=== PATIENT | female | born 1955 | race Caucasian/White ===

== ENCOUNTER 2024-04-18 09:19 | Outpatient (AMB) | payer MEDICARE, BC, SELFPAY ==
--- NOTE | 2024-04-18 09:26 | A.OFFPC_ITS ---
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 Allergies omeprazole Adverse Reaction (Mild, Verified 04/18/24 09:31) IBS Tobacco use date assessed: 04/18/24 Fall risk assessment: No Falls in past year Last assessed Fall Risk: 04/18/24 Dental Screening Dental Screen Date: 04/18/24 Did you have a dental visit in the last 12 months?: Yes Did you have a dental problem in the last 6 months where you did not have access to dental care?: No Was dental information given to patient?: Patient has dentist HPI HPI Comments History of Present Illness Details This is a 68-year-old female with a past medical history of hypertension, hypercholesterolemia, obesity, prediabetes, GERD and vitamin-D deficiency presenting to transfer from my practice at [facility]. Her son is getting in [place] this fall. Her other son was last year in [facility]. Hypertension is treated with 10 mg of lisinopril daily. She is a nonsmoker. Hypercholesterolemia is treated with 20 mg of simvastatin. She is due for labs. She takes 2000 IU of vitamin D3 daily for vitamin D3 deficiency. She was considering taking Prevagen for memory support. I told her to stop her daily vitamin-D 3 supplement if she wants to take Prevagen because it contains the same amount. We have discussed fecal urgency and loose stools. Symptoms are sporadic. She could eat something 1 day and feel fine, and the next day she might eat the same thing and have symptoms. She takes Imodium as needed which helps. Her last colonoscopy was with Dr. oSl in June of 2015, and she was advised to repeat it in 10 years. Denies abdominal pain, unexplained weight loss, fatigue, night sweats, blood or mucus in stools. Mammogram UTD 07/27/23. Last medical wellness visit was 10/26/2023. She goes to [facility] for skin exams. She was treated at a walk-in last week for a UTI. She took 7 days of Macrobid. Her symptoms resolved. ROS: Constitutional: No unexplained weight loss, fever, chills, fatigue or night sweats. Respiratory: No shortness of breath Cardiovascular: No chest pain Musculoskeletal: No muscle pain, back pain, joint pain or swelling. Hematologic/Lymphatics: No bleeding or bruising. No painful lymph nodes. Endocrine: No cold or heat intolerance. No polyuria or polydipsia. Psychiatric: No SI/HI. Physical exam: Constitutional: Alert, in no distress. Neck: Supple, Full range of motion. No lymphadenopathy. Respiratory: Clear to auscultation. Cardiovascular: S1 S2 regular. No murmurs. Gastrointestinal: Abdomen soft, non-tender, non-distended. Normal bowel sounds. No palpable masses. Neurologic: No focal neurological deficits. Skin: No rashes Extremities: Warm and well perfused. No clubbing, cyanosis or edema. Psychiatric: Normal mood and affect [facility] Medical History (Updated 04/18/24 @ 12:20 by LIONEL Moeller) Tear of medial meniscus of knee Synovial cyst of left popliteal space Prolonged QT interval Obesity (BMI 30-39.9) Lumbosacral spondylosis History of herpes zoster Fecal urgency GERD (gastroesophageal reflux disease) Fracture of tibial plateau Atrophic vaginitis Anxiety Essential hypertension Vitamin D deficiency Pure hypercholesterolemia Prediabetes Cataracts, bilateral GERD (gastroesophageal reflux disease) High cholesterol Surgical History (Updated 04/18/24 @ 12:20 by LIONEL Moeller) History of cardiac catheterization Hx of cataract surgery H/O blepharoplasty History of History of bilateral breast reduction surgery History of abdominoplasty History of appendectomy History of right knee joint replacement Family History (Updated 04/18/24 @ 12:21 by LIONEL Moeller) Father Memory loss Mother Diabetes Memory loss High blood pressure High cholesterol Brother Substance abuse in family Hx of CABG High blood pressure High cholesterol Social History (Updated 04/18/24 @ 09:44 by Deysi Lopez CMA) Household Members: Spouse Housing: House Are you a primary career development coordinator to a significant other at home: No Do you presently have visiting nurse or other home services: No 75 years or older and lives alone: No Alcohol intake: current Alcohol intake frequency: holidays/special occasions only Alcohol type: wine and other Patient Tobacco Use Status: Former Tobacco user e-Cigarette/Vaping Use: Never Used Agree to transfusion: Yes service: No Current occupational status: retired Cognitive needs: No Hearing needs: Yes (hearing aids) Vision needs: Yes (Patient wears reading glasses.) Questionnaire PHQ-9 Over the last 2 weeks, how often have you been bothered by any of the following problems? 1. Little interest or pleasure in doing things: not at all 2. Feeling down, depressed, or hopeless: not at all 3. Trouble falling or staying asleep, or sleeping too much: not at all 4. Feeling tired or having little energy: not at all 5. Poor appetite or overeating: not at all 6. Feeling bad about yourself - or that you are a failure or have let yourself or your family down: not at all 7. Trouble concentrating on things, such as reading the newspaper or watching television: not at all 8. Moving or speaking so slowly that other people could have noticed. Or the opposite - being so fidgety or restless that you have been moving around a lot more than usual: not at all 9. Thoughts that you would be better off or of hurting yourself in some way: not at all Total score: 0 Depression Screening Interpretation: Negative Depression Screening Done: Yes Source: Developed by Drs. Dru Nunn, Iris Cote, Josh Black and colleagues, with an educational terry from [employer]. Thrive Questionnaire Date Thrive assessed: 04/18/24 I am a: Patient What is your living situation today?: I have a steady place to live Within the past 12 months, did the food you bought not last and you didn't have the money to get more?: Never true Within the past 12 months, did you worry whether your food would run out before you got money to buy more?: Never true Do you have trouble paying for medicines?: No Do you have trouble getting transportation to medical appointments?: No Do you have trouble paying your heating and electricity bill?: No Do you have trouble taking care of your child, family member or friend?: No Do you have trouble with day-to-day activities such as bathing, preparing meals, shopping, managing finances, etc.?: No Are you currently unemployed and looking for a job?: No Are you interested in more education?: No THRIVE Score: 0 AUDIT C Alcohol Use Questionnaire (AUDIT-C) 1. How often do you have a drink containing alcohol?: Monthly or less 2. How many drinks containing alcohol do you have on a typical day when you are drinking?: 1 or 2 3. How often do you have six or more drinks on one occasion?: Never Total Score: 1 SUDHIR-7 AMB Questionnaire SUDHIR-7 Date SUDHIR - 7 assessed: 04/18/24 Feeling nervous, anxious, or on edge: 0 = Not at all Not being able to stop or control worryin = Not at all Worrying too much about different things: 0 = Not at all Trouble relaxin = Not at all Being so restless that it is hard to sit still: 0 = Not at all Becoming easily annoyed or irritable: 0 = Not at all Feeling afraid as if something awful might happen: 0 = Not at all Total SUDHIR-7 score (0-4 normal; 5-9 mild; 10-14 moderate; 15-21 severe): 0 Source: Developed by Drs. Dru Nunn, Iris Cote, Josh Black and colleagues, with an educational terry from [employer]. Physical exam (Primary Care) Vital Signs: Last Vital Signs Pulse 71 04/18/24 09:28 BP 122/78 04/18/24 09:28 Pulse Ox 96 04/18/24 09:28 Oxygen Delivery Method Room Air 04/18/24 09:28 BMI result Body Mass Index 33.0 Tobacco/Smoking Status: Tobacco use Status Tobacco use date assessed 04/18/24 04/18/24 09:50 Patient Tobacco Use Status Former Tobacco user 04/18/24 09:50 e-Cigarette/Vaping Use Never Used 04/18/24 09:50 PHQ-9: PHQ-9 Score PHQ-9: Total score 0 04/18/24 11:48 Depression Screening Interpretation: Negative Thrive Assessment: Date of Thrive Assessment Date Thrive assessed 04/18/24 04/18/24 09:50 Assessment and Plan Assessment & Plan (1) Pure hypercholesterolemia: Code(s): E78.00 - Pure hypercholesterolemia, unspecified Plan: Recommended the Mediterranean diet and exercise to promote weight loss. Continue simvastatin. Check lipid profile. (2) Vitamin D deficiency: Code(s): E55.9 - Vitamin D deficiency, unspecified Plan: See discussion in HPI regarding supplements. Bone density ordered. Check vitamin-D level. (3) Essential hypertension: Code(s): I10 - Essential (primary) hypertension Plan: Controlled. Continue lisinopril. (4) Fecal urgency: Code(s): R15.2 - Fecal urgency Plan: Patient's description sounds more consistent with IBS than inflammatory bowel disease, food allergy or malignancy. No constitutional symptoms. This has been going on for several years. Recommended trial of low FODMAP diet. She can continue Imodium as needed. Referred to Dr. Sol. (5) Loose stools: Code(s): R19.5 - Other fecal abnormalities Plan Medical wellness visit scheduled for 11/03/2023. Orders: Orders Lipid Panel Today E55.9 - Vitamin D deficiency, unspecified, E78.00 - Pure hypercholesterolemia, unspecified, I10 - Essential (primary) hypertension, R73.03 - Prediabetes Hemoglobin A1c Today E55.9 - Vitamin D deficiency, unspecified, E78.00 - Pure hypercholesterolemia, unspecified, I10 - Essential (primary) hypertension, R73.03 - Prediabetes XR DEXA axial skeleton Today N95.1 - Menopausal and female climacteric states Comprehensive Met. Panel Today E55.9 - Vitamin D deficiency, unspecified, E78.00 - Pure hypercholesterolemia, unspecified, I10 - Essential (primary) hypertension, R73.03 - Prediabetes Vitamin D 1,25 dihydroxy Today E55.9 - Vitamin D deficiency, unspecified, E78.00 - Pure hypercholesterolemia, unspecified, I10 - Essential (primary) hypertension, R73.03 - Prediabetes Referrals Gastroenterology Referral R19.5 - Other fecal abnormalities Coding Level of Care Code Est Pt Level 5 (51069) Complex EM visit Add On G2211 Diagnoses Pure hypercholesterolemia E78.00 Vitamin D deficiency E55.9 Essential hypertension I10 Fecal urgency R15.2 Loose stools R19.5 Time Spent (min) 45 Comment Updating the chart, evaluating patient, reviewing treatment plan
[2024-04-18 09:28] VITALS: BP 122/78; PULSE 71; O2SAT 96; BMI 33.0
== END 2024-04-18 10:29 | disposition home or self-care (01) ==
PROVIDERS: PCP Physician Assistant Medical; Visit Provider Physician Assistant Medical
DX: E78.00 Pure hypercholesterolemia, unspecified (principal); E55.9 Vitamin D deficiency, unspecified; I10 Essential (primary) hypertension; R15.2 Fecal urgency; R19.5 Other fecal abnormalities
CPT/HCPCS: 99215; G2211

== ENCOUNTER 2024-04-28 08:12 | Outpatient (REF) | payer MEDICARE, BC, SELFPAY ==
[2024-04-28 11:46] LABS: Estimated Average Glucose 114 mg/dL; Hemoglobin A1c % 5.6 % (<6.0)
[2024-04-28 12:10] LABS: Alanine Aminotransferase 11 U/L (0-31); Albumin Level 4.1 g/dL (3.5-5.0); Alkaline Phosphatase 65 U/L (39-117); Anion Gap 14 (12-20); Aspartate Amino Transferase 16 U/L (5-31); Bilirubin Total 0.5 mg/dL (0.0-1.0); Blood Urea Nitrogen 18 mg/dL (9-16); Calcium 9.2 mg/dL (8.4-10.2); Carbon Dioxide 25 mmol/L (22-29); Chloride 107 mmol/L (96-108); Cholesterol 168 mg/dL (<200); Estimated Glomerular Filt Rate > 60; Glucose Random 98 mg/dL (60-115); HDL Cholesterol 42 mg/dL (>40); LDL Cholesterol Calculated 91 mg/dL (<100); Potassium 4.4 mmol/L (3.3-5.1); Sodium 142 mmol/L (135-145); Total Protein 6.8 g/dL (6.5-8.0); Triglycerides 178 mg/dL (<150)
[2024-05-04 17:18] LABS: VITAMIN D (1,25 OH) D3 19 pg/mL; Vit D (1,25-Dihydroxy) Total 19 pg/mL (18-72); Vitamin D (1,25 OH) D2 <8 pg/mL
== END 2024-04-28 08:13 | disposition home or self-care (01) ==
LOC: HO.WFDLDS 08:12
PROVIDERS: Visit Provider Physician Assistant Medical
DX: R73.03 Prediabetes (principal); E78.00 Pure hypercholesterolemia, unspecified; E55.9 Vitamin D deficiency, unspecified; I10 Essential (primary) hypertension
CPT/HCPCS: 36415; 80053; 80061; 82652; 83036

== ENCOUNTER 2024-06-09 13:34 | Outpatient (REF) | payer MEDICARE, BC, SELFPAY ==
--- NOTE | ~2024-06-09 | MM_ITS ---
EXAMINATION: BONE DENSITOMETRY CLINICAL INDICATION: Menopause. COMPARISON: This is the patient's baseline examination. TECHNIQUE: Using a MemberPass DXA System (software version: 13.1) manufactured by [employer], dual-energy x-ray absorptiometry was performed of the lumbar spine and left hip. The images are of good technical quality. Summary results are attached. FINDINGS: LEFT FEMUR, NECK: BMD 1.004 g/cm2, Z-score 0.9, T-score -0.2, normal. LEFT FEMUR, TOTAL: BMD 0.939 g/cm2, Z-score 0.3, T-score -0.5, normal. AP SPINE L1-L4: BMD 1.412 g/cm2, Z-score 2.9, T-score 1.9, normal. IDENTIFIED RISK FACTORS: Menopause, height loss. HISTORY OF FRACTURE: None listed. MEDICATIONS: Vitamin D. MM/XR DEXA axial skeleton IMPRESSION: 1. DIAGNOSIS: Normal bone density based on the lowest T-score value of -0.5 in the total femur applying World Health Organization criteria. 2. 10-YEAR FRACTURE RISK PREDICTION, FRAX: According to the guidelines, FRAX calculation should only be performed on patients in the osteopenia bone density category. Therefore, FRAX was not performed on this patient. 3. Treatment Recommendations: NOF guidelines recommend consideration for treatment in postmenopausal women and men age 50 and older presenting with the following: -A hip or vertebral (clinical or morphometric) fracture. -T-score less than or equal to -2.5 at the femoral neck or spine after appropriate evaluation to exclude secondary causes. -Low bone mass at the hip or spine and a 10-year fracture probability by FRAX of greater than or equal to 3% for hip fracture or greater than or equal to 20% for major osteoporotic fracture based on the [place] adapted WHO algorithm. 4. Other Recommendations: All treatment decisions require clinical judgment and consideration of individual patient factors, including patient preferences, comorbidities, previous drug use, risk factors not captured in the FRAX model (e.g. frailty, falls, vitamin D deficiency, increased bone turnover, interval significant decline in bone density) and possible under or overestimation of fracture risk by FRAX. FUTURE SCAN RECOMMENDATION: People with diagnosed cases of osteoporosis or at high risk for fracture should have regular bone mineral density tests. For patients eligible for Medicare, routine testing is allowed once every 2 years. The testing frequency can be increased to one year for patients who have rapidly progressing disease, those who are receiving or discontinuing medical therapy to restore bone mass, or have additional risk factors. Electronically signed by: Hi Caraballo MD 06/15/2024 01:07 PM RUDYT
== END 2024-06-09 13:35 | disposition home or self-care (01) ==
LOC: HO.MAMMO 13:34
PROVIDERS: PCP Physician Assistant Medical; Visit Provider Physician Assistant Medical
DX: Z13.820 Encounter for screening for osteoporosis (principal); Z78.0 Asymptomatic menopausal state
CPT/HCPCS: 77080

== ENCOUNTER → 2024-11-03 08:26 | Outpatient (BNVA) | payer MEDICARE, BC, SELFPAY | PROVIDERS: PCP Physician Assistant Medical; Visit Provider Physician Assistant Medical | DX: I10 Essential (primary) hypertension (principal); E78.00 Pure hypercholesterolemia, unspecified; E66.9 Obesity, unspecified; R73.03 Prediabetes; K21.9 Gastro-esophageal reflux disease without esophagitis; E55.9 Vitamin D deficiency, unspecified; Z68.34 Body mass index [BMI] 34.0-34.9, adult | CPT/HCPCS: 96127; 99212 ==

== ENCOUNTER 2024-11-15 07:35 | Outpatient (REF) | payer MEDICARE, BC, SELFPAY ==
[2024-11-15 11:04] LABS: Appearance Urine Clear; Color Urine Yellow; Glucose Urine UA Negative (Negative); Leukocyte Esterase Urine Trace (Negative); Nitrite Urine Negative (Negative); UMIC TRIGGER UA YES; Urine Blood Negative (Negative); Urine Ketones Negative (Negative); Urine Protein Negative (Neg-Trace)
[2024-11-15 11:06] LABS: MANUAL DIFF FLAG NO
[2024-11-15 11:10] LABS: Bacteria Urine 1+ (None Seen); Hyaline Casts Urine 0-2 /LPF (0-2); RBC Urine 0-2 /HPF (0-2); WBC Urine 0-5 /HPF (0-5)
[2024-11-15 11:13] LABS: Basophils Absolute Auto 0.1 X10*3/uL (0.0-0.2); Basophils Percent Auto 0.9 % (0-2); Eosinophils Absolute Auto 0.2 X10*3/uL (0.0-0.4); Eosinophils Percent Auto 2.8 % (0-4); Hematocrit 38.7 % (37.0-47.0); Hemoglobin 12.7 g/dl (12.0-16.0); Imm Gran Abs Auto 0.03 X10*3/uL (0.00-0.03); Imm Gran Pct Auto 0.4 % (0.0-0.4); Lymphocytes Absolute Auto 1.8 X10*3/uL (1.2-4.9); Lymphocytes Percent Auto 26.7 % (20-40); Mean Corpuscular HGB Conc 32.8 g/dl (31.0-35.0); Mean Corpuscular Hemoglobin 29.3 pg (27.0-33.0); Mean Corpuscular Volume 89.4 fL (80.0-98.0); Monocytes Absolute Auto 0.7 X10*3/uL (0.1-1.2); Neutrophils Percent Auto 59.2 % (45-73); Platelet Count 256 X10*3/uL (160-400); Red Blood Count 4.33 X10*6/uL (4.20-5.50); White Blood Count 6.7 X10*3/uL (4.8-10.8)
[2024-11-15 11:33] LABS: Estimated Average Glucose 117 mg/dL; Hemoglobin A1C 125.1204 umol/L; Hemoglobin A1c % 5.7 % (<6.0); Total Hemoglobin (HGBA1C) 3192.4019 umol/L
[2024-11-15 11:42] LABS: Alanine Aminotransferase 17 U/L (0-31); Alkaline Phosphatase 70 U/L (39-117); Anion Gap 10 (12-20); Aspartate Amino Transferase 24 U/L (5-31); Bilirubin Total 0.4 mg/dL (0.0-1.0); Blood Urea Nitrogen 24 mg/dL (9-16); Calcium 9.2 mg/dL (8.4-10.2); Carbon Dioxide 26 mmol/L (22-29); Chloride 110 mmol/L (96-108); Cholesterol 167 mg/dL (<200); Estimated Glomerular Filt Rate > 60; Glucose Random 103 mg/dL (60-115); HDL Cholesterol 44 mg/dL (>40); LDL Cholesterol Calculated 100 mg/dL (<100); Potassium 4.6 mmol/L (3.3-5.1); Sodium 141 mmol/L (135-145); TSH reflex Free T4 3.27 uIU/mL (0.32-4.0); Total Protein 6.9 g/dL (6.5-8.0); Triglycerides 116 mg/dL (<150)
[2024-11-19 17:19] LABS: Vitamin D 25-OH, D2 <4 ng/mL; Vitamin D 25-OH, D3 49 ng/mL; Vitamin D 25-OH, Total 49 ng/mL (30-100)
== END 2024-11-15 07:36 | disposition home or self-care (01) ==
LOC: HO.WFDLDS 07:35
PROVIDERS: Visit Provider Physician Assistant Medical
DX: E11.9 Type 2 diabetes mellitus without complications (principal); R39.9 Unspecified symptoms and signs involving the genitourinary system; M85.80 Other specified disorders of bone density and structure, unspecified site; E78.00 Pure hypercholesterolemia, unspecified; I10 Essential (primary) hypertension; E55.9 Vitamin D deficiency, unspecified
CPT/HCPCS: 36415; 80053; 80061; 81001; 82306; 83036; 84443; 85025; 87086; 87088; 87186

== ENCOUNTER 2025-01-18 11:12 | Outpatient (AMB) | payer MEDICARE, BC, SELFPAY ==
--- NOTE | 2025-01-18 11:16 | AM.OFFWIN_ITS ---
Intake Vital Signs 01/18/25 11:21 Height 5 ft 4 in BMI Reason not done Patient refused/unable BP 124/70 Blood Pressure Location Rt brachial Position Sitting Respiration 13 Pulse 65 Pulse Source Pulse Oximeter Temp 97.8 F Temp Source Oral Pulse Oximetry (%) 96 Oxygen Delivery Method Room Air Intake Visit Reasons: uti Intake Note: Patient c/o itching and frequent urination Patient Tobacco Use Status: Former Tobacco user Allergies omeprazole Adverse Reaction (Mild, Verified 01/18/25 11:37) IBS Medication List - Last Reconciled 01/18/25 by Penny Khan, [facility]- cholecalciferol (vitamin D3) 50 mcg PO DAILY estradiol (Yuvafem) mcg vaginal lisinopril 10 mg PO DAILY nitrofurantoin macrocrystal 100 mg PO Q12H 7 days pantoprazole 20 mg PO DAILY semaglutide (Ozempic) 0.25 mg (0.368 mL) subcut QWEEK simvastatin 20 mg PO BEDTIME Do you need a note to return to daycare/school/sports/work: No HPI HPI Comments History of Present Illness Details 69 y/o F here today I think i have a UT I Sx started this morning Sx: urgency, itchy, pressure HX of post-coital UTI This is not the case @ the time Last UTI 11/17/24, see below, was on Nitrofurantoin Occassional urinary incont; wears pads Takes Cranberry tabs Denies fever, chills, vaginal discharge, abd pain, back pain. Exam awake alert NAD MMM RRR Abd soft nontender No CVAT Plan UA see below Urine to be sent for culture Self obtained BV swab to r/o yeast given itching and recent ABT Pt will be sent results on the portal and tx rendered once results are back Increase h20, start D-Mannose. RTO edu provided. Total time spent caring for the patient today was 30 minutes. This includes time spent before the visit reviewing the chart, time spent during the visit, and time spent after the visit on documentation, reviewing laboratory results, diagnostic imaging, medications, performing a medically necessary evaluation, counseling on diagnoses, care coordination, ordering appropriate tests, ordering appropriate medications, review of tests performed by other providers, reporting test results with the patient, communication with other healthcare providers. [facility] Medical History (Updated 01/18/25 @ 11:55 by Penny Kahn, [facility]) Anxiety Atrophic vaginitis Cataracts, bilateral Essential hypertension Fecal urgency Fracture of tibial plateau GERD (gastroesophageal reflux disease) GERD (gastroesophageal reflux disease) High cholesterol History of herpes zoster Lumbosacral spondylosis Obesity (BMI 30-39.9) Prediabetes Prolonged QT interval Pure hypercholesterolemia Synovial cyst of left popliteal space Tear of medial meniscus of knee Vitamin D deficiency Surgical History (Updated 04/18/24 @ 12:20 by LIONEL Moeller) H/O blepharoplasty History of abdominoplasty History of appendectomy History of bilateral breast reduction surgery History of History of cardiac catheterization History of right knee joint replacement Hx of cataract surgery Family History (Updated 04/18/24 @ 12:21 by LIONEL Moeller) Father Memory loss Mother Diabetes Memory loss High blood pressure High cholesterol Brother Substance abuse in family Hx of CABG High blood pressure High cholesterol Social History (Updated 04/18/24 @ 09:44 by Deysi Lopez [facility]) Household Members: Spouse Housing: House Are you a primary childcare aide to a significant other at home: No Do you presently have visiting nurse or other home services: No 75 years or older and lives alone: No Alcohol intake: current Alcohol intake frequency: holidays/special occasions only Alcohol type: wine and other Patient Tobacco Use Status: Former Tobacco user e-Cigarette/Vaping Use: Never Used Second Hand Smoke Exposure: No Agree to transfusion: Yes service: No Current occupational status: retired Cognitive needs: No Hearing needs: Yes (hearing aids) Vision needs: Yes (Patient wears reading glasses.) Physical Exam Vital Signs: Last Vital Signs Temp 97.8 F 01/18/25 11:21 Pulse 65 01/18/25 11:21 Resp 13 01/18/25 11:21 BP 124/70 01/18/25 11:21 Pulse Ox 96 01/18/25 11:21 Oxygen Delivery Method Room Air 01/18/25 11:21 Results AMB Urinalysis, Automated UA Leukoctes 70 Jovanny/uL Last Edit by Juan Grayson MA on 01/18/25 11:31 UA Nitrite Negative Last Edit by Juan Grayson MA on 01/18/25 11:31 UA Urobilinogen 3.5 mg/dL Last Edit by Juan Grayson MA on 01/18/25 11:31 UA Protein 0 mg/dL Last Edit by Juan Grayson MA on 01/18/25 11:31 UA pH 6.0 Last Edit by Juan Grayson MA on 01/18/25 11:31 UA Blood 80 Stan/uL Last Edit by Juan Grayson MA on 01/18/25 11:31 UA Specific Commodore 1.010 Last Edit by Juan Grayson MA on 01/18/25 11:3 1 UA Ketone Negative Last Edit by Juan Grayson MA on 01/18/25 11:31 UA Bilirubin 0 mg/dL Last Edit by Juan Grayson MA on 01/18/25 11:31 UA Glucose 0 mg/dL Last Edit by Juan Grayson MA on 01/18/25 11:31 Results Reviewed Results Reviewed: Laboratory Last Values Urine pH (Auto) 6.0 01/18/25 11:14 Specific Commodore (Auto) 1.010 01/18/25 11:14 Urine Protein (Auto) 0 mg/dL 01/18/25 11:14 Glucose (UA)(Auto) 0 mg/dL 01/18/25 11:14 Urine Ketones (Auto) Negative 01/18/25 11:14 Urine Blood (Auto) 80 Stan/uL 01/18/25 11:14 Urine Nitrite (Auto) Negative 01/18/25 11:14 Urine Bilirubin (Auto) 0 mg/dL 01/18/25 11:14 Urine Urobilinogen (Auto) 3.5 mg/dL 01/18/25 11:14 Leukocyte Esterase (Auto) 70 Jovanny/uL 01/18/25 11:14 RUN: 01/18/25 1139 PAGE 1 [facility] [address] [place] [id number] Bake Room Worker: Miguel Hernandez M.D. Specimen Inquiry Name: Tea Mg Age/Sex: 69/F : 1955 Unit#: [id number] Attend Dr: Sheridan Wright Re11/15/24 Status: DEP REF Location: [facility] Disch: Specimen: [id number] Collected: 11/15/24 Status: COMP Req#: [id number] Received: 11/15/24 Source: [facility] Sp Desc: Subm Dr: Sheridan Wright Ordered: Urine Culture Procedure Result Verified Urine Culture Final 11/17/24 Organism 1 Escherichia coli Quant > 100,000 cfu/mL E coli M.I.C. RX --------- --- Ampicillin 8 S Cefazolin (Urine) <=1 S Cefepime <=0.12 S Ceftriaxone <=0.25 S Ciprofloxacin <=0.06 S Gentamicin <=1 S Nitrofurantoin <=16 S Trimethoprim/Sulfamethoxazole <=20 S Assessment & Plan Assessment & Plan (1) Vaginal itching: Code(s): N89.8 - Other specified noninflammatory disorders of vagina (2) UTI symptoms: Code(s): R39.9 - Unspecified symptoms and signs involving the genitourinary system Plan . Orders: Orders AMB Urinalysis Automated Today Z13.9 - Encounter for screening, unspecified Bacterial Vaginosis Panel Today N89.8 - Other specified noninflammatory disorders of vagina Urine Culture Today Z13.9 - Encounter for screening, unspecified Patient Instructions: D-mannose use this in place of Cranberry tablets Coding Level of Care Code Est Pt Level 4 (16988) Diagnoses Vaginal itching N89.8 UTI symptoms R39.9
[2025-01-18 11:21] VITALS: BP 124/70; PULSE 65; RESP 13; TEMP 36.6; O2SAT 96
== END 2025-01-18 11:55 | disposition home or self-care (01) ==
LOC: HO.HMCWIW 11:12
PROVIDERS: PCP Physician Assistant Medical; Visit Provider Nurse Practitioner Family
DX: N89.8 Other specified noninflammatory disorders of vagina (principal); R39.9 Unspecified symptoms and signs involving the genitourinary system

== ENCOUNTER 2025-01-18 11:12 | Outpatient (REF) | payer MEDICARE, BC, SELFPAY ==
[2025-01-18 15:56] LABS: Bacterial Vaginosis PCR NEGATIVE (Negative); Candida Group PCR NOT DETECTED (Not Detect); Candida glab krusei PCR NOT DETECTED (Not Detect); Trichomonas vaginalis PCR NOT DETECTED (Not Detect)
== END 2025-01-18 11:13 | disposition home or self-care (01) ==
LOC: HO.LAB 11:12
PROVIDERS: PCP Physician Assistant Medical; Visit Provider Nurse Practitioner Family
DX: N89.8 Other specified noninflammatory disorders of vagina (principal); R39.9 Unspecified symptoms and signs involving the genitourinary system
CPT/HCPCS: 81515; 87086; 99212

== ENCOUNTER 2025-02-03 08:57 | Outpatient (REF) | payer MEDICARE, BC, SELFPAY ==
--- OUTSIDE RECORDS SUMMARY | 2025-02-03 09:27 | XMS_ITS | Clinical Summary ---
Author Organization [facility] [place] [address] Care Team Providers Care Film Processor Name Role Phone Miguel Thomson MD Primary Care Provider Social History Tobacco Use Types Packs/Day Years Used Date Smoking Tobacco: Never Assessed Comments Unknown Sex and Gender Information Value Date Recorded Sex Assigned at Not on file Legal Sex Female 3:42 PM EDT Gender Identity Not on file Sexual Orientation Not on file Last Filed Vital Signs Vital Sign Reading Time Taken Comments Blood Pressure 132/75 06/13/2024 9:44 AM EDT Pulse 61 06/13/2024 9:44 AM EDT Temperature - - Respiratory Rate - - Oxygen Saturation - - Inhaled Oxygen Concentration - - Weight 88.5 kg (195 lb) 06/13/2024 9:44 AM EDT Height 162.6 cm (5' 4 ) 06/13/2024 9:44 AM EDT Body Mass Index 33.47 06/13/2024 9:44 AM EDT Plan of Treatment Health Maintenance Due Date Last Done Comments Breast Cancer Screening 1955 DTaP,Tdap,and Td Vaccines (1 - Tdap) 1975 Pneumococcal Vaccine: 50+ Ye ars (1 of 1 - PCV) 2006 Zoster Vaccines (1 of 2) 2006 COVID-19 Vaccine ( - 2023-2 5 season) 2024 Colorectal Cancer Screening: Colonoscopy 07/13/2024 Depression Screening 07/13/2024 Falls Risk Assessment 07/13/2024 Hepatitis C Screening 07/13/2024 Osteoporosis Screening (Bone Density Screening) 07/13/2024 Social Influencers of Health Screening 07/13/2024 Influenza Vaccine (Season Ended) 2025 RSV Immunization Adult Patie nts (1 - 1-dose 75+ series) 2031 HIB Vaccines Aged Out No longer eligi ble based on patient's age to complete this topic HPV Vaccines Aged Out No longer eligi ble based on patient's age to complete this topic Hepatitis A Vaccines Aged Out No long er eligible based on patient's age to complete this topic Hepatitis B Vaccines Aged Out No long er eligible based on patient's age to complete this topic IPV Vaccines Aged Out No longer eligi ble based on patient's age to complete this topic MMR Vaccines Aged Out No longer eligi ble based on patient's age to complete this topic Meningococcal ACWY Vaccine Aged Out N o longer eligible based on patient's age to complete this topic Meningococcal B Vaccine Aged Out No l onger eligible based on patient's age to complete this topic RSV Immunization Patients Un gina 20 months Aged Out No longer eligible b ased on patient's age to complete this topic Varicella Vaccines Aged Out No longer eligible based on patient's age to complete this topic Care Teams Film Processor Relationship Specialty Start Date End Date Miguel Thomson MD [address] [place] [address] Dr Cassie MA PCP - General 04/20/24
[2025-02-03 11:46] LABS: Appearance Urine Clear; Color Urine Yellow; Glucose Urine UA Negative (Negative); Leukocyte Esterase Urine Small (1+) (Negative); Nitrite Urine Negative (Negative); UMIC TRIGGER UA YES; Urine Blood Negative (Negative); Urine Ketones Negative (Negative); Urine Protein Negative (Neg-Trace)
[2025-02-03 12:07] LABS: Bacteria Urine None Seen (None Seen); Hyaline Casts Urine 0-2 /LPF (0-2); RBC Urine 0-2 /HPF (0-2); WBC Urine 0-5 /HPF (0-5)
== END 2025-02-03 08:58 | disposition home or self-care (01) ==
LOC: HO.WFDLDS 08:57
PROVIDERS: Referring Provider Physician Assistant Medical; Visit Provider Nurse Practitioner Family
DX: R39.9 Unspecified symptoms and signs involving the genitourinary system (principal)
CPT/HCPCS: 81001; 87086

== ENCOUNTER 2025-04-27 08:55 | Outpatient (AMB) | payer MEDICARE, BC, SELFPAY ==
--- NOTE | 2025-04-27 08:57 | A.OFFPC_ITS ---
Vital Signs 04/27/25 09:03 Height 5 ft 4 in Weight 199 lb 8 oz BMI 34.2 BP 128/62 Blood Pressure Location Lt brachial Position Sitting Pulse 56 Pulse Source Pulse Oximeter Temp 97.9 F Temp Source Temporal Artery Scan Pulse Oximetry (%) 94 Oxygen Delivery Method Room Air Intake Visit Reasons: med review Intake Note: Tea presents in the office today for a medication review. Allergies omeprazole Adverse Reaction (Mild, Verified 04/27/25 09:00) IBS Medication List - Last Reconciled 04/27/25 by LIONEL Moeller cholecalciferol (vitamin D3) 50 mcg PO DAILY estradiol (Yuvafem) mcg vaginal lisinopril 10 mg PO DAILY pantoprazole 20 mg PO DAILY simvastatin 20 mg PO BEDTIME Tobacco use date assessed: 04/27/25 Dental Screening Dental Screen Date: 04/27/25 Did you have a dental visit in the last 12 months?: Yes Did you have a dental problem in the last 6 months where you did not have access to dental care?: No Was dental information given to patient?: Patient has dentist HPI HPI Comments History of Present Illness Details This is a 68-year-old female with a past medical history of hypertension, hypercholesterolemia, obesity, prediabetes, GERD and vitamin-D deficiency presenting for follow up. She has two concerns today in addition to routine care. She endorses intermittent, sudden episodes of heaviness affecting both arms during the past year. It feels like her arms weigh 1000 pounds and are difficult to move. It happened twice one week recently, but she goes weeks without symptoms. It lasts 30 seconds or less resolving without intervention. She has not been able to identify a certain position or activity that triggers this. It happens when she is just sitting down. She has chronic neck pain secondary to arthritis. No history of neck surgeries. Denies numbness and tingling. She denies weakness aside from the episodes. Denies neurologic symptoms associated with episodes. She stakes Simvastatin. She endorses MCDONALD during the past 1-2 months. If she goes up 1 flight of stairs she is fine. After a second flight she is winded and breathing heavily and stops to catch her breath. She has a strong family history of CAD. Two of her brothers had CAD. One had an NE. She denies chest pain, coughing, wheezing, leg swelling. Several years ago she had a stress test. Former smoker-quit 30 years ago. She denies history of clots. She is on Yuvafem. She traveled to [facility] recently, but the symptoms started before the trip. Avoids alcohol, tries to minimize carbs. She is prediabetic. Hypertension is treated with 10 mg of lisinopril daily. Hypercholesterolemia is treated with 20 mg of simvastatin. She takes 2000 IU of vitamin D3 daily for vitamin D3 deficiency. ROS: Constitutional: No unexplained weight loss, fever, chills, fatigue or night sweats. Eyes: No vision changes, blurry vision, double vision, eye pain ENT: No hearing loss, sneezing, congestion, runny nose or sore throat. Respiratory: No hemoptysis, cough or sputum production. Cardiovascular: No chest pain, chest pressure or chest discomfort. No palpitations or pedal edema. Gastrointestinal: No anorexia, nausea, vomiting or diarrhea. No abdominal pain or blood in stool. Neurologic: No headache, dizziness, syncope, tremors, seizures, ataxia, numbness or tingling in the extremities, slurred speech. Musculoskeletal: see HPI Hematologic/Lymphatics: No bleeding or bruising. No painful lymph nodes. Skin: No rash Physical exam: Constitutional: Alert, in no distress. Eyes: Pupils are equal, round and reactive to light. Extraocular muscles intact. Neck: Supple, Full range of motion. No lymphadenopathy. No palpable thyroid masses. Respiratory: Clear to auscultation. Cardiovascular: S1 S2 regular. No murmurs Neurologic:?Alert and oriented x 3, no focal deficits observed, CN 2-12 intact, [id number] normal, sensation equal and symmetric, reflexes equal and symmetric.? Normal gait.? Patient able to heel walk, toe walk and walk heel-to-toe across the floor.? No pronator drift.? Negative Romberg. Musculoskeletal: FROM of the cervical spine and no midline spinal tenderness. b/l LE and UE strength 5/5. Hand regulatory affairs assistant 5/5 b/l. Extremities: Warm and well perfused. No clubbing, cyanosis or edema. Bilateral varicose veins on the lower extremities. Psychiatric: Normal mood and affect [facility] Medical History (Updated 04/27/25 @ 21:00 by LIONEL Moeller) Abnormal EKG MCDONALD (dyspnea on exertion) Arm heaviness Tear of medial meniscus of knee Synovial cyst of left popliteal space Prolonged QT interval Obesity (BMI 30-39.9) Lumbosacral spondylosis History of herpes zoster Fecal urgency GERD (gastroesophageal reflux disease) Fracture of tibial plateau Atrophic vaginitis Anxiety Essential hypertension Vitamin D deficiency Pure hypercholesterolemia Prediabetes Cataracts, bilateral GERD (gastroesophageal reflux disease) High cholesterol Surgical History (Updated 04/18/24 @ 12:20 by LIONEL Moeller) History of cardiac catheterization Hx of cataract surgery H/O blepharoplasty History of History of bilateral breast reduction surgery History of abdominoplasty History of appendectomy History of right knee joint replacement Family History Father Memory loss Mother Diabetes Memory loss High blood pressure High cholesterol Brother Substance abuse in family Hx of CABG High blood pressure High cholesterol Social History (Updated 04/27/25 @ 09:02 by Celena Devries MA) Household Members: Spouse Housing: House Are you a primary healthcare network consultant to a significant other at home: No Do you presently have visiting nurse or other home services: No Alcohol intake: current Alcohol intake frequency: holidays/special occasions only Alcohol type: wine and other Patient Tobacco Use Status: Former Tobacco user e-Cigarette/Vaping Use: Never Used Second Hand Smoke Exposure: No Agree to transfusion: Yes service: No Current occupational status: retired Cognitive needs: No Hearing needs: Yes (hearing aids) Vision needs: Yes (Patient wears reading glasses.) Questionnaire PHQ-9 Over the last 2 weeks, how often have you been bothered by any of the following problems? 1. Little interest or pleasure in doing things: not at all 2. Feeling down, depressed, or hopeless: not at all 3. Trouble falling or staying asleep, or sleeping too much: not at all 4. Feeling tired or having little energy: not at all 5. Poor appetite or overeating: not at all 6. Feeling bad about yourself - or that you are a failure or have let yourself or your family down: not at all 7. Trouble concentrating on things, such as reading the newspaper or watching television: not at all 8. Moving or speaking so slowly that other people could have noticed. Or the opposite - being so fidgety or restless that you have been moving around a lot more than usual: not at all 9. Thoughts that you would be better off or of hurting yourself in some way: not at all Total score: 0 Source: Developed by Drs. Dru Nunn, Iris Cote, Josh Black and colleagues, with an educational terry from [employer]. Thrive Questionnaire Date Thrive assessed: 04/25/25 I am a: Patient What is your living situation today?: I have a steady place to live Within the past 12 months, did the food you bought not last and you didn't have the money to get more?: Never true Within the past 12 months, did you worry whether your food would run out before you got money to buy more?: Never true Do you have trouble paying for medicines?: No Do you have trouble getting transportation to medical appointments?: No Do you have trouble paying your heating and electricity bill?: No Do you have trouble taking care of your child, family member or friend?: No Do you have trouble with day-to-day activities such as bathing, preparing meals, shopping, managing finances, etc.?: No Are you currently unemployed and looking for a job?: No Are you interested in more education?: No Please select the resources that you would like help with: None Currently or been in a relationship where the following occur: No concerns reported THRIVE Score: 0 AUDIT C Alcohol Use Questionnaire (AUDIT-C) 1. How often do you have a drink containing alcohol?: Monthly or less Total Score: 1 SUDHIR-7 AMB Questionnaire SUDHIR-7 Date SUDHIR - 7 assessed: 11/03/24 Feeling nervous, anxious, or on edge: 0 = Not at all Not being able to stop or control worryin = Not at all Worrying too much about different things: 0 = Not at all Trouble relaxin = Not at all Being so restless that it is hard to sit still: 0 = Not at all Becoming easily annoyed or irritable: 0 = Not at all Feeling afraid as if something awful might happen: 0 = Not at all Total SUDHIR-7 score (0-4 normal; 5-9 mild; 10-14 moderate; 15-21 severe): 0 Source: Developed by Iris Ingram.W. Rocael, Josh Black and colleagues, with an educational terry from [employer]. Physical exam (Primary Care) Vital Signs: Last Vital Signs Temp 97.9 F 04/27/25 09:03 Pulse 56 04/27/25 09:03 BP 128/62 04/27/25 09:03 Pulse Ox 94 04/27/25 09:03 Oxygen Delivery Method Room Air 04/27/25 09:03 BMI result Body Mass Index 34.2 Tobacco/Smoking Status: Tobacco use Status Tobacco use date assessed 04/27/25 04/27/25 09:06 Patient Tobacco Use Status Former Tobacco user 04/27/25 09:02 e-Cigarette/Vaping Use Never Used 04/27/25 09:02 PHQ-9: PHQ-9 Score PHQ-9: Total score 0 04/27/25 20:49 Thrive Assessment: Date of Thrive Assessment Date Thrive assessed 04/25/25 04/27/25 08:59 Currently or been in a relationship where the following occur: No concerns reported Office Procedures EKG Details: EKG shows sinus bradycardia with heart rate 51 beats per minute, low-voltage QRS, can not rule out anterior infarct, age undetermined 25247-[id number], Complete Coding Level of Care Code Est Pt Level 5 (55238) Complex EM visit Add On G2211 Diagnoses Essential hypertension I10 Vitamin D deficiency E55.9 Pure hypercholesterolemia E78.00 Prediabetes R73.03 Arm heaviness R29.898 MCDONALD (dyspnea on exertion) R06.09 CPT Codes EKG - CPT: 62735-[id number], Complete ([id number]) Time Spent (min) 48 Comment direct patient care, completing documentation Assessment & Plan Assessment & Plan (1) Essential hypertension: Code(s): I10 - Essential (primary) hypertension Category: Medical Plan: Encouraged weight loss, low-sodium diet and avoidance of caffeine. Continue current regimen. (2) Vitamin D deficiency: Code(s): E55.9 - Vitamin D deficiency, unspecified Category: Medical Plan: Check vitamin-D level. Continue supplement. (3) Pure hypercholesterolemia: Code(s): E78.00 - Pure hypercholesterolemia, unspecified Category: Medical Plan: Check lipid profile. Encouraged Mediterranean diet and weight loss. Continue statin unless CK is elevated. (4) Prediabetes: Code(s): R73.03 - Prediabetes Category: Medical Plan: Continue lifestyle modifications. Continue low carb, low sugar diet. Avoid alcohol. Check A1C. (5) Arm heaviness: Code(s): R29.898 - Other symptoms and signs involving the musculoskeletal system Category: Medical Plan: Patient will have an x-ray to evaluation DDD to see if there is a potential source of nerve compression. EKG done today-see notes below regarding cardiac work up. Consider central cause, but she has no other potential neurologic concerns, and the episodes of bilateral and not progressive. Consider MRI head/brain after initial work up. Check labs. Warning signs warranting ER evaluation reviewed. ?Statin induced myopathy - check CK. (6) MCDONALD (dyspnea on exertion): Code(s): R06.09 - Other forms of dyspnea Category: Medical Plan: EKG abnormal-Strong family history of CAD. Check Echo and pharmacologic stress test (patient has OA of the knees/right knee replacement and can't perform exercise stress test). CXR ordered. Check D-dimer and BNP. Check labs for anemia. Warning signs warranting ER evaluation reviewed. Plan Follow up in 6-8 weeks. Orders: Orders Creatine Kinase Total Today R29.898 - Other symptoms and signs involving the musculoskeletal system Vitamin D 25-OH (D2 and D3) Today M85.80 - Other specified disorders of bone density and structure, unspecified site, R29.898 - Other symptoms and signs involving the musculoskeletal system Lyme IgG/IgM w/reflex to WB Today R29.898 - Other symptoms and signs involving the musculoskeletal system XR chest 4 views Today R06.09 - Other forms of dyspnea D Dimer High Sensitivity Today R06.09 - Other forms of dyspnea B Type Natriuretic Peptide Today R06.09 - Other forms of dyspnea CA lexiscan stress w carmen Today R06.09 - Other forms of dyspnea, R94.31 - Abnormal electrocardiogram [ECG] [EKG] NM cardiolite stress test Today R06.09 - Other forms of dyspnea, R94.31 - Abnormal electrocardiogram [ECG] [EKG] Magnesium Today R29.898 - Other symptoms and signs involving the musculoskeletal system Comprehensive Met. Panel Today R29.898 - Other symptoms and signs involving the musculoskeletal system Complete Blood Count Auto Diff Today R29.898 - Other symptoms and signs involving the musculoskeletal system TSH reflex Free T4 Today R29.898 - Other symptoms and signs involving the musculoskeletal system XR cervical spine 4V Today R29.898 - Other symptoms and signs involving the musculoskeletal system Hemoglobin A1c Today R73.03 - Prediabetes Lipid Panel Today E78.5 - Hyperlipidemia, unspecified AMB EKG-In Office Today R06.09 - Other forms of dyspnea CA echo transthoracic complete Today R06.09 - Other forms of dyspnea, R94.31 - Abnormal electrocardiogram [ECG] [EKG]
[2025-04-27 09:03] VITALS: BP 128/62; PULSE 56; TEMP 36.6; O2SAT 94; BMI 34.2
--- OUTSIDE RECORDS SUMMARY | 2025-04-27 09:23 | XMS_ITS | Clinical Summary ---
Author Organization [facility] [place] [address] Care Team Providers Care Art Specialist Name Role Phone Miguel Thomson MD Primary [...] season) 2024 Colorectal Cancer Screening: Colonoscopy 07/13/2024 Falls Risk Assessment 07/13/2024 Hepatitis C Screening 07/13/2024 Osteoporosis Screening (Bone Density Screening) 07/13/2024 Social Influencers of Health Screening 07/13/2024 Depression Screening 10/05/2024 Influenza Vaccine (#1) 2025 RSV Immunization Adult Patie nts (1 [...] age to complete this topic Care Teams Art Specialist Relationship Specialty Start Date End Date Miguel Thomson MD [address] [place] [address] Dr Cassie MA PCP - General 04/20/24
== END 2025-04-27 09:59 | disposition home or self-care (01) ==
LOC: HO.HMCFM 08:56
PROVIDERS: PCP Physician Assistant Medical; Visit Provider Physician Assistant Medical
DX: I10 Essential (primary) hypertension (principal); E55.9 Vitamin D deficiency, unspecified; E78.00 Pure hypercholesterolemia, unspecified; R73.03 Prediabetes; R29.898 Other symptoms and signs involving the musculoskeletal system; R06.09 Other forms of dyspnea

== ENCOUNTER → 2025-04-27 08:55 | Outpatient (BNVA) | payer MEDICARE, BC, SELFPAY | PROVIDERS: PCP Physician Assistant Medical; Visit Provider Physician Assistant Medical | DX: I10 Essential (primary) hypertension (principal); E55.9 Vitamin D deficiency, unspecified; E78.00 Pure hypercholesterolemia, unspecified; R73.03 Prediabetes; R29.898 Other symptoms and signs involving the musculoskeletal system; R06.09 Other forms of dyspnea; Z79.899 Other long term (current) drug therapy; Z13.30 Encounter for screening examination for mental health and behavioral disorders, unspecified | CPT/HCPCS: 93005; 96127; 99212 ==

== ENCOUNTER 2025-04-27 10:03 | Outpatient (REF) | payer MEDICARE, BC, SELFPAY ==
[2025-04-27 11:16] LABS: MANUAL DIFF FLAG NO
[2025-04-27 11:29] LABS: Hematocrit 37.1 % (37.0-47.0); Hemoglobin 12.3 g/dl (12.0-16.0); Imm Gran Abs Auto 0.03 X10*3/uL (0.00-0.03); Imm Gran Pct Auto 0.4 % (0.0-0.4); Lymphocytes Absolute Auto 1.8 X10*3/uL (1.2-4.9); Mean Corpuscular HGB Conc 33.2 g/dl (31.0-35.0); Mean Corpuscular Hemoglobin 29.4 pg (27.0-33.0); Mean Corpuscular Volume 88.5 fL (80.0-98.0); NRBC Abs Auto 0.000 X10*3/uL (0.0-0.012); NRBC Pct Auto 0.0 /100WBC (0.0-0.2); Platelet Count 231 X10*3/uL (160-400); Red Blood Count 4.19 X10*6/uL (4.20-5.50); White Blood Count 7.0 X10*3/uL (4.8-10.8)
[2025-04-27 11:36] LABS: D Dimer High Sensitivity 155 NG/ML
[2025-04-27 11:45] LABS: Hemoglobin A1C 124.7258 umol/L; Total Hemoglobin (HGBA1C) 3206.0731 umol/L
[2025-04-27 11:51] LABS: B Type Natriuretic Peptide 97 pg/mL (<100)
[2025-04-27 12:13] LABS: Alanine Aminotransferase 16 U/L (0-31); Albumin Level 4.4 g/dL (3.5-5.0); Alkaline Phosphatase 81 U/L (39-117); Anion Gap 9 (12-20); Aspartate Amino Transferase 23 U/L (5-31); Blood Urea Nitrogen 17 mg/dL (9-16); Calcium 9.4 mg/dL (8.4-10.2); Carbon Dioxide 28 mmol/L (22-29); Chloride 108 mmol/L (96-108); Cholesterol 154 mg/dL (<200); Estimated Glomerular Filt Rate > 60; HDL Cholesterol 41 mg/dL (>40); Magnesium 2.0 mg/dL (1.6-2.6); Potassium 4.2 mmol/L (3.3-5.1); Sodium 141 mmol/L (135-145); Total Protein 6.8 g/dL (6.5-8.0); Triglycerides 140 mg/dL (<150)
[2025-04-28 10:23] LABS: Lyme Abs Screen <0.90 index
[2025-05-01 16:23] LABS: Vitamin D 25-OH, D2 <4 ng/mL; Vitamin D 25-OH, D3 57 ng/mL; Vitamin D 25-OH, Total 57 ng/mL (30-100)
== END 2025-04-27 10:04 | disposition home or self-care (01) ==
LOC: HO.WFDLDS 10:03
PROVIDERS: Visit Provider Physician Assistant Medical
DX: R29.898 Other symptoms and signs involving the musculoskeletal system (principal); R06.09 Other forms of dyspnea; R73.03 Prediabetes; M85.80 Other specified disorders of bone density and structure, unspecified site; E78.5 Hyperlipidemia, unspecified; R39.9 Unspecified symptoms and signs involving the genitourinary system
CPT/HCPCS: 36415; 80053; 80061; 82306; 82550; 83036; 83735; 83880; 84443; 85025; 85379; 86617; 86618

== ENCOUNTER 2025-04-28 09:14 | Outpatient (REF) | payer MEDICARE, BC, SELFPAY ==
--- NOTE | ~2025-04-28 | XR_ITS ---
EXAMINATION: XR CERVICAL SPINE CLINICAL INFORMATION: R29.898 - Other symptoms and signs involving the musculoskeletal system COMPARISON: None available. TECHNIQUE: AP oblique lateral and atlantoodontoid views. FINDINGS: Craniocervical junction is intact. Grade 1 anterolisthesis C3-4 and to a lesser extent C4-5 and C5-6 levels. Small marginal osteophyte formation and endplate sclerosis with decreased intervertebral disc height at C5-6 and C6-7 levels. Bilateral neuroforamina narrowing on a degenerative basis secondary to marginal osteophyte pronounced on the left side from C3-4 to C5-6. Multilevel facet joint hypertrophy on the right side at C4-5 C5-6 level and on the left at C3-4 and C4-5 levels. No lytic or blastic lesions. Osteopenia versus osteoporosis. XR/XR cervical spine min 6V IMPRESSION: Multilevel cervical spondylosis C3 C7 resulting in grade 1 anterolisthesis C3-4 C4-5 and C5-6. Multilevel neuroforamina narrowing involving mostly the left side. Electronically signed by: Rafal Benavides MD 04/28/2025 09:51 AM EDT
--- NOTE | ~2025-04-28 | XR_ITS ---
EXAMINATION: XR CHEST CLINICAL INFORMATION: R06.09 - Other forms of dyspnea COMPARISON: None available. TECHNIQUE: 2 views of the chest were obtained. FINDINGS: No consolidation, pleural effusion or pneumothorax. Cardiomediastinal silhouette size is normal. Multilevel thoracolumbar spondylosis. Degenerative changes in the shoulders. XR/XR chest 2V IMPRESSION: No acute airspace disease. Multilevel spondylosis. Electronically signed by: Rafal Benavides MD 04/28/2025 09:48 AM EDT
--- OUTSIDE RECORDS SUMMARY | 2025-04-28 09:30 | XMS_ITS | Clinical Summary ---
Author Organization [facility] [place] [address] Care Team Providers Care Dental Ceramist Assistant Name Role Phone Miguel Thomson MD Primary Care Provider [phone] Social History Tobacco Use Types Packs/Day Years [...] age to complete this topic Care Teams Dental Ceramist Assistant Relationship Specialty Start Date End Date Miguel Thomson MD [address] [place] [address] Dr Cassie MA PCP - General 04/20/24
== END 2025-04-28 09:15 | disposition home or self-care (01) ==
LOC: HO.XRAY 09:14
PROVIDERS: PCP Physician Assistant Medical; Visit Provider Physician Assistant Medical
DX: R06.09 Other forms of dyspnea (principal); R29.898 Other symptoms and signs involving the musculoskeletal system; M47.812 Spondylosis without myelopathy or radiculopathy, cervical region; M48.02 Spinal stenosis, cervical region; M43.12 Spondylolisthesis, cervical region
CPT/HCPCS: 71046; 72052

== ENCOUNTER → 2025-04-28 09:20 | Outpatient (BNV) | payer MEDICARE, BC, SELFPAY | PROVIDERS: PCP Physician Assistant Medical; Visit Provider Radiology Diagnostic Radiology | DX: M47.812 Spondylosis without myelopathy or radiculopathy, cervical region (principal); R06.09 Other forms of dyspnea | CPT/HCPCS: 71046; 72052 ==

== ENCOUNTER 2025-05-01 08:33 | Outpatient (REF) | payer MEDICARE, BC, SELFPAY ==
--- OUTSIDE RECORDS SUMMARY | 2025-05-01 08:51 | XMS_ITS | Clinical Summary ---
Author Organization [facility] [place] [address] Care Team Providers Care Mannequin Molder Name Role Phone Miguel Thomson MD Primary [...] age to complete this topic Care Teams Mannequin Molder Relationship Specialty Start Date End Date Miguel Thomson MD [address] [place] [address] Dr Cassie MA PCP - General 04/20/24
[2025-05-01 15:10] LABS: Appearance Urine Clear; Glucose Urine UA Negative (Negative); PH 6.5 (5.0-9.0); Specific Gravity - Urine 1.020 (1.005-1.025); UMIC TRIGGER UACC YES
[2025-05-01 15:29] LABS: UACC Culture Trigger YES
== END 2025-05-01 08:34 | disposition home or self-care (01) ==
LOC: HO.WFDLDS 08:33
PROVIDERS: Visit Provider Physician Assistant
DX: R74.8 Abnormal levels of other serum enzymes (principal)
CPT/HCPCS: 36415; 81001; 81003; 82550; 87086; 87147

== ENCOUNTER → 2025-06-07 08:03 | Outpatient (REF) | payer MEDICARE, BC, SELFPAY ==
--- NOTE | 2025-06-07 08:06 | CA_ITS ---
Transthoracic Echocardiogram Patient (Last, First, Middle): Tea Mg, Gender: F Date of : 1955 Age: 70 Procedure Date: 06/07/2025 Procedure Type: Transthoracic Echocardiogram Location: OP Height: 162.56 cm Weight: 90.27 kg BSA: 1.95 m2 Heart Rate: bpm BP: 128 / 62 mmHg Business Strategy Manager: ANNMAREI Referring MD: Sheridan FLOWERS Home Health Outreach Coordinator: Orlin Reece MD Symptoms: R06.09 - Other forms of dyspnea Study Quality: Adequate ECG Rhythm: Sinus Conclusions: - 1. Normal LV ejection fraction of 60 65% with impaired relaxation filling pattern 2. Normal cardiac valvular Dopplers 3. No gross pericardial effusion Findings Left Ventricle Normal left ventricular size, thickness, and systolic function. The visually estimated ejection fraction is between 60-65%. Spectral Doppler is indicative of an impaired relaxation filling pattern. E/E prime ratio is between 8 and 15 consistent with indeterminate filling pressures. Right Ventricle Normal right ventricular cavity size and systolic function. Atria Both atria are normal in size. Interatrial shunt cannot be excluded. Aortic Valve The aortic valve structure and function is likely normal. There is no aortic valve stenosis. There is no aortic valve regurgitation. Mitral Valve There is mild anterior mitral leaflet thickening. There is trace mitral valve regurgitation. There is no mitral valve stenosis. Pulmonic Valve The pulmonic valve was not well visualized. Tricuspid Valve Likely normal tricuspid valve structure and function. Tricuspid regurgitation envelope is inadequate for calculation of right ventricular systolic pressure. Normal right atrial pressure. Great Vessels All visible segments of the aorta are normal in size. The pulmonary artery was not well visualized. There is no dilatation of the ascending aorta measuring 3.00 cm. Small plaque is seen in the sino tubular ridge. Venous The inferior vena cava is normal in size and collapses greater than 50% with inspiration. Pericardium/Pleural There is no evidence of pericardial effusion. Prior Study Comparison No prior study available for comparison. Measurements 2D Linear Measurements IVSd: 0.98 0.6-0.9/0.6-1.0 cm LVIDd: 4.60 3.9-5.3/4.2-5.9 cm LVIDd Index: 2.36 2.4-3.2/2.2-3.1 cm/m2 LVIDs: 3.17 2.0-3.6 cm LVPWd: 0.88 0.7-1.1 cm LA Diam: 3.90 2.7-3.8/3.0-4.0 cm LAIDs Index: 2.00 1.5-2.3 cm/m2 LV Mass: 179.40 67-162/88-224 g LV Mass Index: 92.00 43-95/49-115 g/m2 LVOT Diam: 1.90 3.0+(-)1.3 cm 2D Systolic Function EF 4C: 64.50 >55% EF 2C: 63.20 >55% EF BiP: 64.30 >55% Mitral Valve MV Pk E: 0.66 MV PK A: 1.04 MV Decel Time: 264.00 E/A: 0.60 E'Lateral: 8.16 E'Medial: 5.33 E/E' Med: 12.50 E/E' Lat: 8.10 PHT: 77.00 MVA PHT: 2.86 Decel Mora: 2.52 Aortic Valve AoV Pk Bernardo: 1.24 AoV Mn Bernardo: 0.89 AoV VTI: 0.35 AoV Pk Grad: 6.00 Aov Mn Grad: 4.00 MARQUIS Cont.VTI: 2.19 LVOT LVOT Pk Bernardo: 0.94 LVOT Mn Bernardo: 0.65 LVOT VTI: 0.27 LVOT Pk Grad: 4.00 LVOT Mn Grad: 2.00 LVOT Diam: 1.90 LVOT Area: 2.84 Diastolic Function MV Pk E: 0.66 MV Pk A: 1.04 E/A: 0.60 E'Medial: 5.33 E/E' Med: 12.50 E' Laterial: 8.16 E/E' Lat: 8.10 Right Ventricle TAPSE (mm): 27.70 TVS' Bernardo: 10.80 Tricuspid Valve RA Press: 3.00 Great Vessels Aorta Sinus of Valsalva: 3.24 2.0-3.[address] Ridge: 2.13 1.7-3.4 cm Ao Asc: 3.00 2.1-3.4 cm Updated in Other Vendor System with Status of Final Orlin Reece MD electronically signed on 06/07/2025 2:24:14 PM with status of Final
--- OUTSIDE RECORDS SUMMARY | 2025-06-07 08:23 | XMS_ITS | Clinical Summary ---
Author Organization [facility] [place] [address] Care Team Providers Care Director It Project Name Role Phone Miguel Thomson MD Primary Care Provider [phone] Social History Tobacco Use Types Packs/Day Years [...] 2006 Zoster Vaccines (1 of 2) 2006 Colorectal Cancer Screening: Colonoscopy 07/13/2024 Falls Risk Assessment 07/13/2024 Hepatitis C Screening 07/13/2024 Osteoporosis Screening (Bone Density Screening) 07/13/2024 Social Influencers of Health Screening 07/13/2024 Depression Screening 10/05/2024 COVID-19 Vaccine (2023-2 5 season) 2025 Influenza Vaccine (#1) 2025 RSV Immunization Adult [...] age to complete this topic Care Teams Director It Project Relationship Specialty Start Date End Date Miguel Thomson MD [address] [place] [address] Dr Cassie MA PCP - General 04/20/24
== END ==
LOC: HO.CARD 08:03
PROVIDERS: PCP Physician Assistant Medical; Visit Provider Physician Assistant Medical
DX: R06.09 Other forms of dyspnea (principal); R94.31 Abnormal electrocardiogram [ECG] [EKG]
CPT/HCPCS: 93306

== ENCOUNTER → 2025-06-07 08:06 | Outpatient (BNV) | payer MEDICARE, BC, SELFPAY | PROVIDERS: PCP Physician Assistant Medical; Visit Provider Internal Medicine Cardiovascular Disease | DX: R06.09 Other forms of dyspnea (principal) | CPT/HCPCS: 93306 ==

== ENCOUNTER → 2025-06-09 08:24 | Outpatient (REF) | payer MEDICARE, BC, SELFPAY ==
--- NOTE | ~2025-06-09 | NM_ITS ---
Lexiscan Myocardial perfusion study Indication: Shortness of breath to evaluate for myocardial ischemia Technique: Stress and rest study was performed with arms by the side of the torso, interfering with inferolateral wall uptake The patient was brought in for a Lexiscan perfusion study on 06/09/2025 and was injected 0.4 mg of Lexiscan intravenously. Within a minute of this injection 30 mCi of sestamibi was given intravenously. Images were obtained using the SPECT gamma camera interlaced with the gating device. Images were obtained in supine position. Resting perfusion study was performed on 06/14/2025. Patient was administered 30 mCi of sestamibi intravenously at rest. Images were then obtained in supine position. Images were processed with the software and compared side to side in short axis, horizontal long axis and vertical long axis views. Findings: The stress perfusion study showed nonattenuated images show absent uptake in the focal area of inferoapical as well as apical lateral wall of the LV myocardium as well as mildly reduced uptake in the inferolateral wall of the LV myocardium. Attenuated corrected images show minimal thinning of the apex of the LV myocardium.. The gated study shows normal LV systolic function with calculated LVEF of 67%. LV cavity is normal in size. The gated study shows normal systolic wall thickening and contraction of segments. Resting study shows nonattenuated images show mildly reduced uptake in the focal area of apical inferolateral as well as. Wall as well as improved uptake in the inferolateral wall of the LV myocardium. Attenuated corrected images show minimal thinning of the apex of the LV myocardium. Gating at rest reveals normal systolic wall motion with ejection fraction at 66%. The findings are consistent with there is clear reversible defect noted on nonattenuated images which is not apparent on attenuated corrected images. This could be due to shifting composition during acquisition. Reversible ischemia cannot be entirely ruled out. NM/NM cardiolite stress test Impression: 1. Myocardial perfusion imaging study shows likely normal myocardial perfusion although with reduced confidence of interpretation 2. Gated LVEF is 66% 3. Transient ischemic dilatation not present Nondiagnostic changes on EKG. Electronically signed by: Orlin Reece MD 06/14/2025 01:47 PM EDT
--- NOTE | 2025-06-09 08:27 | CA_ITS ---
Acquisition Time: 2025-06-09 08:52:13 Total Exercise Time: 00:02:00 Test Indications: SOB Medications: SEE H&P Protocol: LEXISCAN Max HR: 111 BPM 73% of Pred: 151 BPM Max BP: 160/82 mmHG Max Work Load: 1.0 METS Pharmacological stress test with Lexiscan while pt swings her legs in chair, with reports of SOB, headache and palpitations, with frequent PVCs, with normotensive response to injection. Nondiagnostic EKG for ischemia. In recovery, pt treated with IVP Aminophylline 75 mg to reverse Lexiscan after which pt feeling back to baseline. Nuclear images pending. Test reviewed with Dr. Gatica. Referred By: Sheridan Wright Electronically Signed By: Jeff Moyer
--- OUTSIDE RECORDS SUMMARY | 2025-06-09 08:52 | XMS_ITS | Clinical Summary ---
Author Organization [facility] [place] [address] Care Team Providers Care Business Systems Advisor Name Role Phone Miguel Thomson MD Primary Care Provider [phone] Social History Tobacco Use Types Packs/Day Years [...] age to complete this topic Care Teams Business Systems Advisor Relationship Specialty Start Date End Date Miguel Thomson MD [address] [place] [address] Dr Cassie MA PCP - General 04/20/24
== END ==
LOC: HO.CARD 08:24
PROVIDERS: PCP Physician Assistant Medical; Visit Provider Physician Assistant Medical
DX: R06.09 Other forms of dyspnea (principal); R94.31 Abnormal electrocardiogram [ECG] [EKG]
CPT/HCPCS: 78452; 93017; A9500; J0280; J2785

== ENCOUNTER → 2025-06-09 08:27 | Outpatient (BNV) | payer MEDICARE, BC, SELFPAY | PROVIDERS: PCP Physician Assistant Medical | DX: I49.3 Ventricular premature depolarization (principal); R06.02 Shortness of breath | CPT/HCPCS: 78452; 93016; 93018 ==

== ENCOUNTER 2025-06-19 09:59 | Outpatient (AMB) | payer MEDICARE, BC, SELFPAY ==
--- NOTE | 2025-06-19 10:04 | MHC.PC.OV ---
Vital Signs 06/19/25 10:09 Height 5 ft 4 in Weight 197 lb BMI 33.8 BP 120/64 Blood Pressure Location Rt brachial Position Sitting Respiration 13 Pulse 62 Pulse Source Pulse Oximeter Temp 98.0 F Temp Source Temporal Artery Scan Pulse Oximetry (%) 97 Oxygen Delivery Method Room Air Intake Visit Reasons: MCDONALD Intake Note: Tea presents in the office today for a follow up and to receive her results. Allergies omeprazole Adverse Reaction (Mild, Verified 06/19/25 10:06) IBS Medication List - Last Reconciled 06/19/25 by LIONEL Moeller atorvastatin (Lipitor) 10 mg PO BEDTIME cholecalciferol (vitamin D3) 50 mcg PO DAILY estradiol (Yuvafem) mcg vaginal lisinopril 10 mg PO DAILY pantoprazole 20 mg PO DAILY Tobacco use date assessed: 06/19/25 Dental Screening Dental Screen Date: 06/19/25 Did you have a dental visit in the last 12 months?: Yes Did you have a dental problem in the last 6 months where you did not have access to dental care?: No Was dental information given to patient?: Patient has dentist HPI HPI Comments History of Present Illness Details This is a 68-year-old female with a past medical history of hypertension, hypercholesterolemia, obesity, prediabetes, GERD and vitamin-D deficiency presenting for follow up. She saw physiatry, and they recommended physical therapy which she will start in July because her son is visiting. She was previously evaluated for intermittent sudden episodes of heaviness affecting her arms during the past year. She has chronic neck pain secondary to arthritis. Creatinine kinase level was mildly elevated, and she was taken off simvastatin. She did not tolerate rosuvastatin. She just started a atorvastatin last night. She had an x-ray of the cervical spine on 04/28/2025 which showed multilevel cervical spondylosis resulting in grade 1 anterolisthesis and multilevel neuroforaminal narrowing involving mostly the left side. She denies interval episodes of heaviness in her arms. At her last visit she reported the following symptoms: She endorses MCDONALD during the past 1-2 months. If she goes up 1 flight of stairs she is fine. After a second flight she is winded and breathing heavily and stops to catch her breath. She has a strong family history of CAD. Two of her brothers had CAD. One had an HI. She denies chest pain, coughing, wheezing, leg swelling. Her lab work demonstrated no significant abnormalities with her CBC, electrolytes were normal, kidney function and liver function were normal. Thyroid function was normal. She had a chest x-ray on 04/28/2025 which showed no cardiopulmonary abnormalities. She had an echocardiogram on 06/07/2025 which showed normal left ventricular ejection fraction of 60-65% with impaired relaxation filling pattern and no significant valve disease. She had a pharmacologic stress test on 04/08/2025 which showed likely normal myocardial perfusion although reduced confidence of interpretation is noted. Her symptoms are stable. Avoids alcohol, tries to minimize carbs. She is prediabetic. Hypertension is treated with 10 mg of lisinopril daily. She takes 2000 IU of vitamin D3 daily for vitamin D3 deficiency. She has a form today for a handicap placard due to arthritis in her lower back and knees. This was completed for her. A copy was sent to [facility]. ROS: Constitutional: No unexplained weight loss, fever, chills, fatigue or night sweats. Eyes: No vision changes, blurry vision, double vision, eye pain ENT: No hearing loss, sneezing, congestion, runny nose or sore throat. Respiratory: No hemoptysis, cough or sputum production. Cardiovascular: No chest pain, chest pressure or chest discomfort. No palpitations or pedal edema. Gastrointestinal: No anorexia, nausea, vomiting or diarrhea. No abdominal pain or blood in stool. Neurologic: No headache, dizziness, syncope, tremors, seizures, ataxia, numbness or tingling in the extremities, slurred speech. Musculoskeletal: see HPI Hematologic/Lymphatics: No bleeding or bruising. No painful lymph nodes. Skin: No rash Physical exam: Constitutional: Alert, in no distress. Eyes: Pupils are equal, round and reactive to light. Extraocular muscles intact. Neck: Supple, Full range of motion. No lymphadenopathy. No palpable thyroid masses. Respiratory: Clear to auscultation. Cardiovascular: S1 S2 regular. No murmurs Musculoskeletal: FROM of the cervical spine and no midline spinal tenderness. b/l LE and UE strength 5/5. Hand disc pad grinder 5/5 b/l. Extremities: Warm and well perfused. No clubbing, cyanosis or edema. Bilateral varicose veins on the lower extremities. Psychiatric: Normal mood and affect [facility] Medical History (Updated 05/01/25 @ 13:11 by LIONEL Moeller) DDD (degenerative disc disease), cervical Abnormal EKG MCDONALD (dyspnea on exertion) Arm heaviness Tear of medial meniscus of knee Synovial cyst of left popliteal space Prolonged QT interval Obesity (BMI 30-39.9) Lumbosacral spondylosis History of herpes zoster Fecal urgency GERD (gastroesophageal reflux disease) Fracture of tibial plateau Atrophic vaginitis Anxiety Essential hypertension Vitamin D deficiency Pure hypercholesterolemia Prediabetes Cataracts, bilateral GERD (gastroesophageal reflux disease) High cholesterol Surgical History (Updated 04/18/24 @ 12:20 by LIONEL Moeller) History of cardiac catheterization Hx of cataract surgery H/O blepharoplasty History of History of bilateral breast reduction surgery History of abdominoplasty History of appendectomy History of right knee joint replacement Family History Father Memory loss Mother Diabetes Memory loss High blood pressure High cholesterol Brother Substance abuse in family Hx of CABG High blood pressure High cholesterol Social History (Updated 06/19/25 @ 10:08 by Celena Devries MA) Household Members: Spouse Housing: House Are you a primary housekeeper caregiver to a significant other at home: No Do you presently have visiting nurse or other home services: No 75 years or older and lives alone: No Alcohol intake: current Alcohol intake frequency: holidays/special occasions only Alcohol type: wine and other Patient Tobacco Use Status: Former Tobacco user e-Cigarette/Vaping Use: Never Used Second Hand Smoke Exposure: No Agree to transfusion: Yes service: No Current occupational status: retired Cognitive needs: No Hearing needs: Yes (hearing aids) Vision needs: Yes (Patient wears reading glasses.) Questionnaire Thrive Questionnaire Date Thrive assessed: 04/25/25 I am a: Patient What is your living situation today?: I have a steady place to live Within the past 12 months, did the food you bought not last and you didn't have the money to get more?: Never true Within the past 12 months, did you worry whether your food would run out before you got money to buy more?: Never true Do you have trouble paying for medicines?: No Do you have trouble getting transportation to medical appointments?: No Do you have trouble paying your heating and electricity bill?: No Do you have trouble taking care of your child, family member or friend?: No Do you have trouble with day-to-day activities such as bathing, preparing meals, shopping, managing finances, etc.?: No Are you currently unemployed and looking for a job?: No Are you interested in more education?: No Please select the resources that you would like help with: None Currently or been in a relationship where the following occur: No concerns reported THRIVE Score: 0 SUDHIR-7 AMB Questionnaire SUDHIR-7 Date SUDHIR - 7 assessed: 11/03/24 Source: Developed by Drs. Dru Nunn, Iris Cote, Josh Black and colleagues, with an educational terry from [employer]. Physical exam (Primary Care) Vital Signs: Last Vital Signs Temp 98.0 F 06/19/25 10:09 Pulse 62 06/19/25 10:09 Resp 13 06/19/25 10:09 BP 120/64 06/19/25 10:09 Pulse Ox 97 06/19/25 10:09 Oxygen Delivery Method Room Air 06/19/25 10:09 BMI result Body Mass Index 33.8 Tobacco/Smoking Status: Tobacco use Status Tobacco use date assessed 06/19/25 06/19/25 10:12 Patient Tobacco Use Status Former Tobacco user 06/19/25 10:08 e-Cigarette/Vaping Use Never Used 06/19/25 10:08 Thrive Assessment: Date of Thrive Assessment Date Thrive assessed 04/25/25 06/19/25 10:06 Currently or been in a relationship where the following occur: No concerns reported Coding Level of Care Code Est Pt Level 4 (56963) Complex EM visit Add On G2211 Diagnoses Essential hypertension I10 Vitamin D deficiency E55.9 Pure hypercholesterolemia E78.00 Prediabetes R73.03 Arm heaviness R29.898 MCDONALD (dyspnea on exertion) R06.09 Assessment & Plan Assessment & Plan (1) Essential hypertension: Code(s): I10 - Essential (primary) hypertension Category: Medical Plan: Encouraged weight loss, low-sodium diet and avoidance of caffeine. Continue current regimen. (2) Vitamin D deficiency: Code(s): E55.9 - Vitamin D deficiency, unspecified Category: Medical Plan: Check vitamin-D level. (3) Pure hypercholesterolemia: Code(s): E78.00 - Pure hypercholesterolemia, unspecified Category: Medical Plan: Encouraged Mediterranean diet and weight loss. She just started a atorvastatin. Check labs in 6-8 weeks. She will call if she is not tolerating it. (4) Prediabetes: Code(s): R73.03 - Prediabetes Category: Medical Plan: Continue lifestyle modifications. Continue low carb, low sugar diet. Avoid alcohol. (5) Arm heaviness: Code(s): R29.898 - Other symptoms and signs involving the musculoskeletal system Category: Medical Plan: This may be related to degenerative disc disease in her cervical spine, but she has not had another episode since discontinuing simvastatin when her CK level came back mildly elevated. (6) MCDONALD (dyspnea on exertion): Code(s): R06.09 - Other forms of dyspnea Category: Medical Plan: Patient agreeable to follow up with Cardiology to review the results of her stress test to see if other testing is recommended. She has a family history of cardiovascular disease. Warning signs warranting ER evaluation reviewed. Plan Follow up in 8 weeks to review test results. Orders: Referrals Cardiology Referral R06.09 - Other forms of dyspnea Medications: Discontinued amoxicillin-pot clavulanate 875-125 mg Discontinued Reason: Doctor's Order 1 tab PO Q12H 20 tabs 0RF
[2025-06-19 10:09] VITALS: BP 120/64; PULSE 62; RESP 13; TEMP 36.7; O2SAT 97; BMI 33.8
--- OUTSIDE RECORDS SUMMARY | 2025-06-19 12:28 | XMS_ITS | Clinical Summary ---
Author Organization [facility] [place] [address] Care Team Providers Care Ehs Manager Name Role Phone Miguel Thomson MD Primary Care Provider [phone] Social History Tobacco Use Types Packs/Day Years [...] age to complete this topic Care Teams Ehs Manager Relationship Specialty Start Date End Date Miguel Thomson MD [address] [place] [address] Dr Cassie MA PCP - General 04/20/24
== END 2025-06-19 10:40 | disposition home or self-care (01) ==
LOC: HO.HMCFM 10:00
PROVIDERS: PCP Physician Assistant Medical; Visit Provider Physician Assistant Medical
DX: I10 Essential (primary) hypertension (principal); E55.9 Vitamin D deficiency, unspecified; E78.00 Pure hypercholesterolemia, unspecified; R73.03 Prediabetes; R29.898 Other symptoms and signs involving the musculoskeletal system; R06.09 Other forms of dyspnea

== ENCOUNTER → 2025-06-19 09:59 | Outpatient (BNVA) | payer MEDICARE, BC, SELFPAY | PROVIDERS: PCP Physician Assistant Medical; Visit Provider Physician Assistant Medical | DX: I10 Essential (primary) hypertension (principal); E55.9 Vitamin D deficiency, unspecified; E78.00 Pure hypercholesterolemia, unspecified; R73.03 Prediabetes; R29.898 Other symptoms and signs involving the musculoskeletal system; R06.09 Other forms of dyspnea | CPT/HCPCS: 99212 ==

== ENCOUNTER 2025-08-21 14:03 | Outpatient (AMB) | payer MEDICARE, BC, SELFPAY ==
--- NOTE | 2025-08-21 13:57 | A.OFFPC_ITS ---
Intake Visit Reasons: teleheath review lab results Intake Note: patient here for Telehealth follow up for labs review Mercerizing Range Controller Required: No Is last menstrual period known: No Post menopausal: No Patient : No Allergies omeprazole Adverse Reaction (Mild, Verified 08/21/25 13:57) IBS Tobacco use date assessed: 08/21/25 Fall risk assessment: No Falls in past year Last assessed Fall Risk: 08/21/25 Dental Screening Dental Screen Date: 08/21/25 Did you have a dental visit in the last 12 months?: Yes Did you have a dental problem in the last 6 months where you did not have access to dental care?: No Was dental information given to patient?: Patient has dentist HPI HPI Comments History of Present Illness Details This is a 68-year-old female with a past medical history of hypertension, hypercholesterolemia, obesity, prediabetes, GERD and vitamin-D deficiency presenting for follow up. She has had no further episodes of arm heaviness. She was taken off simvastatin because CK was elevated. She did not tolerate rosuvastatin. She is taking atorvastatin 10 mg at night without any side effects. She is due to repeat labs. She had an x-ray of the cervical spine on 04/28/2025 which showed multilevel cervical spondylosis resulting in grade 1 anterolisthesis and the level neuroforaminal narrowing involving mostly the left side. She saw physiatry who recommended physical therapy. She still has dyspnea on exertion, and she has an appointment scheduled with Cardiology in November. She has a strong family history of coronary artery disease. He denied coughing, chest pain, wheezing and leg swelling. Her lab work demonstrated no significant abnormalities with her CBC, electrolytes were normal, kidney function and liver function were normal. Thyroid function was normal. She had a chest x-ray on 04/28/2025 which showed no cardiopulmonary abnormalities. She had an echocardiogram on 06/07/2025 which showed normal left ventricular ejection fraction of 60-65% with impaired relaxation filling pattern and no significant valve disease. She had a pharmacologic stress test on 04/08/2025 which showed likely normal myocardial perfusion although reduced confidence of interpretation is noted. Her symptoms are stable. Avoids alcohol, tries to minimize carbs. She is prediabetic. Hypertension is treated with 10 mg of lisinopril daily. ROS: Respiratory: No hemoptysis, cough or sputum production Cardiovascular: No chest pain Neurologic: No headache, dizziness, syncope, tremors, seizures, ataxia, numbness or tingling in the extremities, slurred speech. [facility] Medical History (Updated 05/01/25 @ 13:11 by LIONEL Moeller) DDD (degenerative disc disease), cervical Abnormal EKG MCDONALD (dyspnea on exertion) Arm heaviness Tear of medial meniscus of knee Synovial cyst of left popliteal space Prolonged QT interval Obesity (BMI 30-39.9) Lumbosacral spondylosis History of herpes zoster Fecal urgency GERD (gastroesophageal reflux disease) Fracture of tibial plateau Atrophic vaginitis Anxiety Essential hypertension Vitamin D deficiency Pure hypercholesterolemia Prediabetes Cataracts, bilateral GERD (gastroesophageal reflux disease) High cholesterol Surgical History (Updated 04/18/24 @ 12:20 by LIONEL Moeller) History of cardiac catheterization Hx of cataract surgery H/O blepharoplasty History of History of bilateral breast reduction surgery History of abdominoplasty History of appendectomy History of right knee joint replacement Family History Father Memory loss Mother Diabetes Memory loss High blood pressure High cholesterol Brother Substance abuse in family Hx of CABG High blood pressure High cholesterol Social History (Updated 06/19/25 @ 10:08 by Celena Devries MA) Household Members: Spouse Housing: House Are you a primary insurance healthcare consultant to a significant other at home: No Do you presently have visiting nurse or other home services: No 75 years or older and lives alone: No Alcohol intake: current Alcohol intake frequency: holidays/special occasions only Alcohol type: wine and other Patient Tobacco Use Status: Former Tobacco user e-Cigarette/Vaping Use: Never Used Second Hand Smoke Exposure: No Agree to transfusion: Yes Patient : No service: No Current occupational status: retired Current occupational exposures/hazards: No Cognitive needs: No Hearing needs: Yes (hearing aids) Vision needs: Yes (Patient wears reading glasses.) Questionnaire Thrive Questionnaire Date Thrive assessed: 04/25/25 I am a: Patient What is your living situation today?: I have a steady place to live Within the past 12 months, did the food you bought not last and you didn't have the money to get more?: Never true Within the past 12 months, did you worry whether your food would run out before you got money to buy more?: Never true Do you have trouble paying for medicines?: No Do you have trouble getting transportation to medical appointments?: No Do you have trouble paying your heating and electricity bill?: No Do you have trouble taking care of your child, family member or friend?: No Do you have trouble with day-to-day activities such as bathing, preparing meals, shopping, managing finances, etc.?: No Are you currently unemployed and looking for a job?: No Are you interested in more education?: No Please select the resources that you would like help with: None Currently or been in a relationship where the following occur: No concerns reported THRIVE Score: 0 SUDHIR-7 AMB Questionnaire SUDHIR-7 Date SUDHIR - 7 assessed: 11/03/24 Source: Developed by Drs. Dru Nunn, Iris Cote, Josh Black and colleagues, with an educational terry from [email or web address]. Physical exam (Primary Care) Tobacco/Smoking Status: Tobacco use Status Tobacco use date assessed 08/21/25 08/21/25 13:58 Patient Tobacco Use Status Former Tobacco user 08/21/25 13:58 e-Cigarette/Vaping Use Never Used 08/21/25 13:58 Thrive Assessment: Date of Thrive Assessment Date Thrive assessed 04/25/25 08/21/25 13:58 Currently or been in a relationship where the following occur: No concerns reported Telehealth Telehealth Telehealth Platform: Telephone Location of provider rendering services: practice address Location of patient: address on file Patient Identification confirmed using: Name, : Yes Telehealth method: voice only Patient verbally consented to treatment: Yes Patient verbally consented to billing insurance company: Yes Patient informed of any privacy concerns related to visit: Yes Minutes spent on Phone/Video with Pt.: 14 Coding Level of Care Code Tele Est Pt Level 4 (57301) Diagnoses Essential hypertension I10 Pure hypercholesterolemia E78.00 Prediabetes R73.03 Arm heaviness R29.898 MCDONALD (dyspnea on exertion) R06.09 Assessment & Plan Assessment & Plan (1) Essential hypertension: Code(s): I10 - Essential (primary) hypertension Category: Medical Plan: Encouraged weight loss, low-sodium diet and avoidance of caffeine. Continue current regimen. (2) Pure hypercholesterolemia: Code(s): E78.00 - Pure hypercholesterolemia, unspecified Category: Medical Plan: Encouraged Mediterranean diet and weight loss. Tolerating atorvastatin. Check labs. (3) Prediabetes: Code(s): R73.03 - Prediabetes Category: Medical Plan: Continue lifestyle modifications. Continue low carb, low sugar diet. Avoid alcohol. (4) Arm heaviness: Code(s): R29.898 - Other symptoms and signs involving the musculoskeletal system Category: Medical Plan: This may be related to degenerative disc disease in her cervical spine, but she has not had another episode since discontinuing simvastatin when her CK level came back mildly elevated. (5) MCDONALD (dyspnea on exertion): Code(s): R06.09 - Other forms of dyspnea Category: Medical Plan: Patient agreeable to follow up with Cardiology to review the results of her stress test to see if other testing is recommended. She has a family history of cardiovascular disease. Warning signs warranting ER evaluation reviewed. Plan Follow up in 6 months for annual exam. Orders: Orders Hemoglobin A1c Today R73.9 - Hyperglycemia, unspecified
== END 2025-08-21 21:20 | disposition home or self-care (01) ==
LOC: HO.HMCFM 14:03
PROVIDERS: PCP Physician Assistant Medical; Visit Provider Physician Assistant Medical
DX: I10 Essential (primary) hypertension (principal); E78.00 Pure hypercholesterolemia, unspecified; R73.03 Prediabetes; R29.898 Other symptoms and signs involving the musculoskeletal system; R06.09 Other forms of dyspnea

== ENCOUNTER 2025-08-23 08:00 | Outpatient (REF) | payer MEDICARE, BC, SELFPAY ==
[2025-08-23 11:15] LABS: Appearance Urine Clear; Glucose Urine UA Negative (Negative); PH 5.5 (5.0-9.0); Specific Gravity - Urine 1.020 (1.005-1.025)
[2025-08-23 13:56] LABS: Alanine Aminotransferase 16 U/L (0-31); Aspartate Amino Transferase 27 U/L (5-31); Cholesterol 174 mg/dL (<200); HDL Cholesterol 40 mg/dL (>40); Triglycerides 176 mg/dL (<150)
--- OUTSIDE RECORDS SUMMARY | 2025-08-23 15:31 | XMS_ITS | Clinical Summary ---
Author Organization [facility] [address] Care Team Providers Care Freight Car Cleaner Name Role Phone Miguel Thomson MD Primary Care Provider [phone]- [phone] Social History Tobacco Use Types Packs/Day Years [...] Last Done Comments Breast Cancer Screening 1955 Colorectal Cancer Screening: Colonoscopy 1955 DTaP,Tdap,and Td Vaccines (1 - Tdap) 1975 Pneumococcal Vaccine: 50+ Ye ars (1 of 1 - PCV) 2006 Zoster Vaccines (1 of 2) 2006 Falls Risk Assessment 07/13/2024 Hepatitis C Screening 07/13/2024 Osteoporosis Screening (Bone Density Screening) 07/13/2024 Social Influencers of Health Screening 07/13/2024 Depression Screening 10/05/2024 COVID-19 Vaccine (2024-2 6 season) 2025 Influenza Vaccine (#1) 2025 RSV [...] age to complete this topic Care Teams Freight Car Cleaner Relationship Specialty Start Date End Date Miguel Thomson MD [address] [place] [address] Dr Cassie MA PCP - General 04/20/24
== END 2025-08-23 08:01 | disposition home or self-care (01) ==
LOC: HO.WFDLDS 08:00
PROVIDERS: Physician Assistant; Visit Provider Physician Assistant Medical
DX: Z13.220 Encounter for screening for lipoid disorders (principal); R74.8 Abnormal levels of other serum enzymes; M50.30 Other cervical disc degeneration, unspecified cervical region; E78.00 Pure hypercholesterolemia, unspecified; R73.9 Hyperglycemia, unspecified; R39.9 Unspecified symptoms and signs involving the genitourinary system
CPT/HCPCS: 36415; 80061; 81001; 81003; 82550; 83036; 84450; 84460; 87086; 87088; 87186